=== PATIENT | female | born 1965 | race American Indian/Alaskan Native ===

== ENCOUNTER 2016-12-02 14:01 | Outpatient (CLI) | payer BC ==
--- NOTE | 2016-12-02 14:52 | XRay Report ---
LUMBAR SPINE RADIOGRAPHS: INDICATION: Back pain. COMPARISON: None similar. FINDINGS: AP and lateral lumbar spine radiographs demonstrate mild dextrocurvature apex about L1. Normal vertebral body stature. Slight lower lumbar degenerative spurring. Mild L3-L4 disc narrowing suspected. Clear visualized lung bases. Nonobstructive bowel gas pattern. Intact SI joints. CONCLUSION: No acute lumbar radiographic abnormality with mild degenerative changes. Thank you for the opportunity to participate in this patient's care.
== END 2016-12-02 14:02 | disposition home or self-care (01) ==
LOC: XRAY 14:01
DX: M43.8X6 Other specified deforming dorsopathies, lumbar region (principal)
CPT/HCPCS: 72100